=== PATIENT | male | born 2005 | race Two or more races ===

== ENCOUNTER 2023-08-25 05:12 | Emergency (ER) | payer OTHER, SELFPAY ==
--- NOTE | 2023-08-25 | ECG_ITS ---
Test Reason : CHEST PAIN Blood Pressure : / mmHG Vent. Rate : 054 BPM Atrial Rate : 054 BPM P-R Int : 134 ms QRS Dur : 094 ms QT Int : 390 ms P-R-T Axes : 052 077 038 degrees QTc Int : 369 ms Sinus bradycardia Otherwise normal ECG No previous ECGs available Referred By: Generic ED Physician Electronically Signed By:MAGUE VOGEL
--- NOTE | ~2023-08-25 | XR_ITS ---
EXAMINATION: XR CHEST CLINICAL INFORMATION: Chest pain. COMPARISON: None available. TECHNIQUE: Frontal view of the chest was obtained. FINDINGS: The lungs are well expanded. No focal consolidation. No pleural effusion. Cardiac silhouette is within normal limits. XR/XR chest 1V IMPRESSION: No acute abnormality.
[2023-08-25 05:30] VITALS: BP 109/70; PULSE 52; RESP 18; TEMP 36.1; O2SAT 99; BMI 18.8
[2023-08-25 05:38] LABS: MANUAL DIFF FLAG NO
[2023-08-25 05:40] LABS: Basophils Absolute Auto 0.1 X10*3/uL (0.0-0.2); Eosinophils Absolute Auto 0.4 X10*3/uL (0.0-0.4); Eosinophils Percent Auto 5.4 % (0-4); Hematocrit 43.7 % (42.0-52.0); Hemoglobin 14.6 g/dl (14.0-18.0); Imm Gran Abs Auto 0.02 X10*3/uL (0.00-0.03); Imm Gran Pct Auto 0.3 % (0.0-0.4); Lymphocytes Absolute Auto 3.5 X10*3/uL (1.2-4.9); Lymphocytes Percent Auto 48.3 % (20-40); Mean Corpuscular HGB Conc 33.4 g/dl (31.0-36.0); Mean Corpuscular Hemoglobin 28.5 pg (27.0-33.0); Mean Corpuscular Volume 85.2 fL (80.0-98.0); Mean Platelet Volume 12.8 fL (9.4-12.4); Monocytes Absolute Auto 0.5 X10*3/uL (0.1-1.2); Monocytes Percent Auto 6.2 % (2-11); Neutrophils Absolute Auto 2.8 x10*3/uL (2.0-8.3); Neutrophils Percent Auto 38.8 % (45-73); Platelet Count 146 X10*3/uL (160-400); Red Blood Count 5.13 X10*6/uL (4.60-5.80); Red Cell Distribution Width 13.1 % (11.0-16.0); White Blood Count 7.2 X10*3/uL (4.8-10.8)
[2023-08-25 05:57] LABS: Alanine Aminotransferase 13 U/L (0-40); Albumin Level 4.3 g/dL (3.5-5.0); Alkaline Phosphatase 104 U/L (39-117); Anion Gap 15 (12-20); Aspartate Amino Transferase 23 U/L (5-37); Bilirubin Direct 0.1 mg/dL (0.0-0.5); Bilirubin Total 0.3 mg/dL (0.0-1.0); Blood Urea Nitrogen 12 mg/dL (9-16); Calcium 9.7 mg/dL (8.4-10.2); Carbon Dioxide 25 mmol/L (22-29); Chloride 106 mmol/L (96-108); Creatinine Clr Calc Pharmacy 101.9; Estimated Glomerular Filt Rate > 60; Glucose Random 108 mg/dL (60-115); Potassium 3.7 mmol/L (3.3-5.1); Sodium 142 mmol/L (135-145)
--- NOTE | 2023-08-25 07:00 | CA_ITS ---
Transthoracic Echocardiogram Patient (Last, First, Middle): Nohemi Campbell Alex Gender: Male Date of : 2005 Age: 18 Procedure Date: 08/25/2023 Procedure Type: Transthoracic Echocardiogram Location: ER Height: 170.18 cm Weight: 54.43 kg BSA: 1.63 m2 Heart Rate: 70 bpm BP: 107 / 61 mmHg [employer] Supervisor: SB Referring MD: Nazanin Del Real DO Symptoms: chest pain, elevated troponin Study Quality: Good ECG Rhythm: Sinus Conclusions: - The left ventricular systolic function is normal. The calculated ejection fraction is 62% by biplane method. - No obvious valvular pathology seen on this study. Findings Left Ventricle Normal left ventricular cavity size. There is normal left ventricular wall thickness. The left ventricular systolic function is normal. The calculated ejection fraction is 62% by biplane method. There is no evidence of regional wall motion abnormalities. Diastolic function is normal for age. LV peak GLS -20.3%. Right Ventricle Normal right ventricular cavity size and systolic function. Atria Both atria are normal in size. Aortic Valve There is a normal trileaflet aortic valve. There is no aortic valve stenosis. There is no aortic valve regurgitation. Mitral Valve The mitral valve appears normal. There is no mitral valve regurgitation. There is no mitral valve stenosis. Pulmonic Valve The pulmonic valve is likely normal. Tricuspid Valve There is trace tricuspid valve regurgitation. There is no evidence of pulmonary hypertension. Great Vessels The asc aorta is normal in size. Venous The inferior vena cava is normal in size and collapses greater than 50% with inspiration. Pericardium/Pleural There is no evidence of pericardial effusion. Prior Study Comparison No prior study available for comparison. Recommendations, Care & Conclusions No obvious valvular pathology seen on this study. Measurements 2D Linear Measurements IVSd: 0.71 0.6-0.9/0.6-1.0 cm LVIDd: 4.88 3.9-5.3/4.2-5.9 cm LVIDd Index: 2.99 2.4-3.2/2.2-3.1 cm/m2 LVIDs: 3.45 2.0-3.6 cm LVPWd: 0.65 0.7-1.1 cm LA Diam: 3.30 2.7-3.8/3.0-4.0 cm LAIDs Index: 2.02 1.5-2.3 cm/m2 LV Mass: 130.98 67-162/88-224 g LV Mass Index: 80.35 43-95/49-115 g/m2 LVOT Diam: 2.00 3.0+(-)1.3 cm 2D Systolic Function EF 4C: 61.50 >55% EF 2C: 62.80 >55% EF BiP: 61.80 >55% Mitral Valve MV Pk E: 0.96 MV PK A: 0.29 MV Decel Time: 199.00 E/A: 3.40 E'Lateral: 23.20 E'Medial: 12.50 E/E' Med: 7.70 E/E' Lat: 4.20 PHT: 58.00 MVA PHT: 3.79 Decel Sutton: 4.85 Aortic Valve AoV Pk Arsen: 1.15 AoV Pk Grad: 5.00 CHERYL: 2.74 LVOT LVOT Pk Arsen: 0.96 LVOT Mn Arsen: 0.66 LVOT VTI: 0.21 LVOT Pk Grad: 4.00 LVOT Mn Grad: 2.00 LVOT Diam: 2.00 LVOT Area: 3.14 Diastolic Function MV Pk E: 0.96 MV Pk A: 0.29 E/A: 3.40 E'Medial: 12.50 E/E' Med: 7.70 E' Laterial: 23.20 E/E' Lat: 4.20 Right Ventricle TAPSE (mm): 21.30 TVS' Arsen: 13.20 Tricuspid Valve TR Pk Arsen: 1.84 TR Pk Grad: 14.00 RA Press: 3.00 RVSP: 17.00 Great Vessels Aorta Sinus of Valsalva: 2.80 2.0-3.5 cm Ao Asc: 2.40 2.1-3.4 cm Pulmonary Veins Pulm Vein S/D 1.00 Pulmonary Valve PV Pk Arsen: 1.06 Peak PV Grad: 4.00 Updated in Other Vendor System with Status of Final Colton Crowder MD electronically signed on 08/25/2023 10:18:00 AM with status of Final
[2023-08-25 07:51] VITALS: BP 107/61; PULSE 58; RESP 14; TEMP 36.6; O2SAT 100
[2023-08-25 08:02] VITALS: PULSE 56
--- NOTE | 2023-08-25 08:32 | ED.CHESTPAIN ---
HPI - Chest Pain General Chief Complaint: Chest Pain Stated Complaint: chest pain Time Seen by Provider: 08/25/23 07:59 Source: patient Mode of arrival: ambulatory Limitations: no limitations History of Present Illness HPI narrative: 18 yo male with PMH of IBS here with intermittent chest pain on and off x 1 month worse at 430am at this time he notes no risk factors for VTE, dissection. He denies drug use or pre-workout. No recent URIs. He states today it made him feel worse so he came to get it checked out. No prior cardiac work up. MD complaint: chest pain Onset (ago): month(s) (1 but again at 430am today) Timing of current episode: episodic Prior episodes: Yes Onset: during rest Pain location: substernal Pain radiation: none Severity: moderate Quality: tightness Relieving factors: nothing Exacerbating factors: nothing Associated symptoms: nausea, dyspnea and palpitations Treatment prior to arrival: none Related Data Previous Rx's ?Medication ?Instructions ?Recorded ibuprofen 600 mg tablet 600 mg PO Q6H pain 7 days #30 tabs 08/25/23 Allergies Allergy/AdvReac Type Severity Reaction Status Date / Time No Known Allergies Allergy Verified 08/25/23 05:32 Review of Systems Review of Systems: Constitutional : No Weight loss, No Fever, No Chills ENT/Mouth : No sore throat, No Rhinorrhea Eyes: No Eye Pain, No Swelling Cardiovascular : pos Chest Pain, pos SOB, no Dyspnea on Exertion, No Orthopnea, No Edema, No Palpitations Respiratory : No Cough, No Sputum Gastrointestinal : no Nausea, No Vomiting, No Diarrhea, No abdominal Pain, No Hematochezia, No Melena Genitourinary : No Dysuria, No Urinary Frequency Musculoskeletal : No joint pain, No Myalgias, No Joint Swelling Skin : No Skin Lesions, No rash Neuro : No Weakness, No Numbness, No Dizziness, No Headache Psych : No Anxiety/Panic, No Depression All other systems reviewed and are negative [facility] Past Medical History Attestation statement: The following information was validated with the patient. Source: old records reviewed Medical History IBS (irritable bowel syndrome) Social History Social History (Updated 08/25/23 @ 08:35 by Nazanin Del Real DO) Patient Tobacco Use Status: Never used Tobacco Smoked in Last 30 Days: No Use of substances other than those prescribed or required for medical reasons: No Advance Directives: No Advance Directives Information Provided: No Do you have a plan to hurt others: No Plan Physical Exam Vital Signs: Vital Signs: Last Vital Signs Temp 97.8 F 08/25/23 09:59 Pulse 60 08/25/23 09:59 Resp 17 08/25/23 09:59 BP 106/68 08/25/23 09:59 Pulse Ox 97 08/25/23 09:59 O2 Del Method Room Air 08/25/23 09:59 BMI result Body Mass Index 18.8 Appearance: Alert. Oriented X3. No acute distress. Eyes: Pupils equal, round and reactive to light. ENT: Pharynx normal. Neck: Normal inspection. Neck supple. CVS: Normal heart rate and rhythm. Pulses normal. Respiratory: No respiratory distress. Breath sounds normal. Abdomen: Soft and nontender. Skin: Skin warm and dry. Normal skin color. Normal skin turgor. Extremities: No lower extremity edema. No calf ttp Neuro: Oriented X 3. No motor deficit. No sensory deficit. Medical Decision Making Medical Decision Making [facility] Narrative: 18 yo male with IBS here with atypical on and off chest pain for a month no preceding URI symptoms - no travel he has distal pulses intact - he is PERC negative, doubt dissection given distal pulses intact. At this time he denies fam hx of CAD or sudden cardiac , he takes no medications and denies drug use/steroid use/pre-workout. At this time labs, troponin, EKG, CXR Differential Diagnosis Differential Diagnoses: The differential diagnosis associated with the presentation includes pericarditis, myocarditis, atypical chest pain PERC Negative distal pulses intact doubt dissection Admission/Observation Consideration of admission/observation: Escalation of care including admission/observation considered reviewed with cardiology can follow up in 2 weeks ECHO normal start on NSAIDs Consult Healthcare Provider Management of the patient was discussed with: Cylinder Dyer Dr. Vel cameron 905am - ordered ECHO Lab Data [facility] Lab Attestation statement: I reviewed the patient's lab results. 08/25/23 05:31 08/25/23 05:31 Labs: Lab Results 08/25/23 08/25/23 08/25/23 Range/Units 05:31 08:29 09:24 WBC 7.2 (4.8-10.8) X10*3/uL RBC 5.13 (4.60-5.80) X10*6/uL Hgb 14.6 (14.0-18.0) g/dl Hct 43.7 (42.0-52.0) % MCV 85.2 (80.0-98.0) fL MCH 28.5 (27.0-33.0) pg MCHC 33.4 (31.0-36.0) g/dl RDW 13.1 (11.0-16.0) % Plt Count 146 L (160-400) X10*3/uL MPV 12.8 H (9.4-12.4) fL Immature Gran % (Auto) 0.3 (0.0-0.4) % Neut % (Auto) 38.8 L (45-73) % Lymph % (Auto) 48.3 H (20-40) % [place] % (Auto) 6.2 (2-11) % Eos % (Auto) 5.4 H (0-4) % Baso % (Auto) 1.0 (0-2) % Lymph # (Auto) 3.5 (1.2-4.9) X10*3/uL [place] # (Auto) 0.5 (0.1-1.2) X10*3/uL Eos # (Auto) 0.4 (0.0-0.4) X10*3/uL Baso # (Auto) 0.1 (0.0-0.2) X10*3/uL Abs Immat Gran (auto) 0.02 (0.00-0.03) X10*3/uL Absolute Neuts (auto) 2.8 (2.0-8.3) x10*3/uL Absolute Nucleated RBC 0.000 (0.0-0.012) X10*3/uL Nucleated RBC % (auto) 0.0 (0.0-0.2) /100WBC ESR 1 (0-15) MM/HR PT 12.9 (11.1-13.3) SEC INR 1.1 (0.9-1.1) Sodium 142 (135-145) mmol/L Potassium 3.7 (3.3-5.1) mmol/L Chloride 106 (96-108) mmol/L Carbon Dioxide 25 (22-29) mmol/L Anion Gap 15 (12-20) BUN 12 (9-16) mg/dL Creatinine 0.89 (0.5-1.4) mg/dL Estim Creat Clear Calc 101.9 Estimated GFR > 60 Random Glucose 108 (60-115) mg/dL Calcium 9.7 (8.4-10.2) mg/dL Total Bilirubin 0.3 (0.0-1.0) mg/dL Direct Bilirubin 0.1 (0.0-0.5) mg/dL AST 23 (5-37) U/L ALT 13 (0-40) U/L Alkaline Phosphatase 104 (39-117) U/L Troponin I High Sens 61.0 H 58.9 H (<3.5-35.0) ng/L C-Reactive Protein < 0.10 (< or = 0.50) mg/dL Total Protein 7.0 (6.5-8.0) g/dL Albumin 4.3 (3.5-5.0) g/dL Urine Opiates Screen (Not Detect) Ur Buprenorphine Scrn (Not Detect) ng/mL Ur Oxycodone Screen (Not Detect) ng/mL Urine Methadone Screen (Not Detect) ng/mL Urine Fentanyl Screen (Not Detect) Ur Barbiturates Screen (Not Detect) Ur Phencyclidine Scrn (Not Detect) Ur Amphetamines Screen (Not Detect) U Benzodiazepines Scrn (Not Detect) Urine Cocaine Screen (Not Detect) U Marijuana (THC) Screen (Not Detect) Influenza Type A (PCR) NEGATIVE (Negative) Influenza Type B (PCR) NEGATIVE (Negative) RSV RNA Qual (PCR) NEGATIVE (Negative) SARS-CoV-2 RNA (RT-PCR) NEGATIVE (Negative) 08/25/23 Range/Units 09:59 WBC (4.8-10.8) X10*3/uL RBC (4.60-5.80) X10*6/uL Hgb (14.0-18.0) g/dl Hct (42.0-52.0) % MCV (80.0-98.0) fL MCH (27.0-33.0) pg MCHC (31.0-36.0) g/dl RDW (11.0-16.0) % Plt Count (160-400) X10*3/uL MPV (9.4-12.4) fL Immature Gran % (Auto) (0.0-0.4) % Neut % (Auto) (45-73) % Lymph % (Auto) (20-40) % [place] % (Auto) (2-11) % Eos % (Auto) (0-4) % Baso % (Auto) (0-2) % Lymph # (Auto) (1.2-4.9) X10*3/uL [place] # (Auto) (0.1-1.2) X10*3/uL Eos # (Auto) (0.0-0.4) X10*3/uL Baso # (Auto) (0.0-0.2) X10*3/uL Abs Immat Gran (auto) (0.00-0.03) X10*3/uL Absolute Neuts (auto) (2.0-8.3) x10*3/uL Absolute Nucleated RBC (0.0-0.012) X10*3/uL Nucleated RBC % (auto) (0.0-0.2) /100WBC ESR (0-15) MM/HR PT (11.1-13.3) SEC INR (0.9-1.1) Sodium (135-145) mmol/L Potassium (3.3-5.1) mmol/L Chloride (96-108) mmol/L Carbon Dioxide (22-29) mmol/L Anion Gap (12-20) BUN (9-16) mg/dL Creatinine (0.5-1.4) mg/dL Estim Creat Clear Calc Estimated GFR Random Glucose (60-115) mg/dL Calcium (8.4-10.2) mg/dL Total Bilirubin (0.0-1.0) mg/dL Direct Bilirubin (0.0-0.5) mg/dL AST (5-37) U/L ALT (0-40) U/L Alkaline Phosphatase (39-117) U/L Troponin I High Sens (<3.5-35.0) ng/L C-Reactive Protein (< or = 0.50) mg/dL Total Protein (6.5-8.0) g/dL Albumin (3.5-5.0) g/dL Urine Opiates Screen Not Detected (Not Detect) Ur Buprenorphine Scrn Not Detected (Not Detect) ng/mL Ur Oxycodone Screen Not Detected (Not Detect) ng/mL Urine Methadone Screen Not Detected (Not Detect) ng/mL Urine Fentanyl Screen Not Detected (Not Detect) Ur Barbiturates Screen Not Detected (Not Detect) Ur Phencyclidine Scrn Not Detected (Not Detect) Ur Amphetamines Screen Not Detected (Not Detect) U Benzodiazepines Scrn Not Detected (Not Detect) Urine Cocaine Screen Not Detected (Not Detect) U Marijuana (THC) Screen POSITIVE H (Not Detect) Influenza Type A (PCR) (Negative) Influenza Type B (PCR) (Negative) RSV RNA Qual (PCR) (Negative) SARS-CoV-2 RNA (RT-PCR) (Negative) Independent Interpretation I performed an independent interpretation of an: EKG and Plain X-Ray (normal ) Interpretation: Rate: 54 Rhythm: sinus bradycardia [place]: normal Normal P waves. Normal JENNIFER. Normal QRS complex. ST T wave : no [place], biphasic t waves in V1 qTC: 369 prior studies: no prior The study has been interpreted contemporaneously by me. . Radiology Impression Discussion of test interpretation with radiology: I have reviewed the radiologist's reading. Prescription Management I considered prescription management with: Other Critical Care Time Critical Care Time Critical Care Time: Yes Total Critical Care Time: 45 Attestation: repeat troponin, ECHO, cardiology consult I attest to this time spent taking care of the patient Discharge Plan Discharge Clinical Impression: Precordial chest pain Pericarditis Qualifiers: Pericarditis type: unspecified type Chronicity: acute Qualified Code(s): I30.9 - Acute pericarditis, unspecified Patient Disposition: Home, Self-Care Instructions: Chest Pain (ED), Acute Pericarditis (ED) Additional Instructions: return for worsening pain, leg swelling, fainting, or any other concerns cardiology will be calling you to schedule outpatient appointment in 2 weeks please follow up take motrin as prescribed for one week we will call you if your tick studies are positive Prescriptions: New ibuprofen 600 mg tablet 600 mg PO Q6H 7 Days Qty: 30 0RF Stand Alone Forms: Work/School Release Print Language: Czech
[2023-08-25 08:40] LABS: INTERNATIONAL NORM RATIO 1.1 (0.9-1.1); Prothrombin Time 12.9 SEC (11.1-13.3)
[2023-08-25 08:51] LABS: C Reactive Protein < 0.10 mg/dL (< or = 0.50)
[2023-08-25 08:59] LABS: Troponin-I High Sensitivity 58.9 ng/L (<3.5-35.0)
[2023-08-25 09:28] LABS: Erythrocyte Sedimentation Rate 1 MM/HR (0-15)
[2023-08-25 09:59] VITALS: BP 106/68; PULSE 60; RESP 17; TEMP 36.6; O2SAT 97
[2023-08-25 10:16] LABS: Influenza A PCR NEGATIVE (Negative); Influenza B PCR NEGATIVE (Negative); Resp Syncy Virus RNA Qual PCR NEGATIVE (Negative); SARS COV2 PCR INHOUSE NEGATIVE (Negative)
[2023-08-25 10:20] LABS: Amphetamine Screen Urine Not Detected (Not Detect); Barbiturates, Urine Not Detected (Not Detect); Benzodiazepines Screen Urine Not Detected (Not Detect); Buprenorphine Scr Not Detected (Not Detect); Cannabinoid Screen Urine POSITIVE (Not Detect); Cocaine Screen Urine Not Detected (Not Detect); Fentanyl, urine Not Detected (Not Detect); Methadone Screen, Urine Not Detected (Not Detect); Opiate Screen Urine Not Detected (Not Detect); Oxycodone Screen Urine Not Detected (Not Detect); Phencyclidine Screen Urine Not Detected (Not Detect)
--- NOTE | 2023-08-25 10:32 | P.CONCA_ITS ---
History of Present Illness History of Present Illness Date of Service: 08/25/23 Chief complaint: chest pain Narrative: This is a cardiology consultation regarding chest pain. Patient is a 18-year-old young male without any past history. He states for the last month or so he has not been feeling good. Off and on symptoms of chest tightness/weird feeling. He has also been feeling some discomfort in the abdomen intermittently. Today, he woke up with this and then got very anxious and decided to get checked out. Overall, healthy at baseline with no limitations. Troponins were checked in the ER and that showed slight elevation and hence we are asked to see. Review of Systems 2 Review of Systems: Yes all other systems are reviewed and are negative Constitutional: Constitutional: Reports as per HPI and Reports no additional constitutional complaints Eyes: Eyes: Reports as per HPI and Denies no additional eye complaints ENT: Denies system reviewed and no additional complaints, except as documented and Reports as per HPI Cardiovascular: Cardiovascular: Reports as per HPI, Reports no additional cardiovascular complaints, Denies acrocyanosis, Denies cool extremities, Reports chest pain, Denies leg edema, Denies lightheadedness, Denies palpitations and Denies dyspnea Respiratory: Respiratory: Reports as per HPI, Denies no additional respiratory complaints and Denies dyspnea Gastrointestinal: Gastrointestinal: Reports as per HPI and Denies no additional gastrointestinal complaints Genitourinary: Genitourinary: Reports no additional male genitourinary complaints and Reports as per HPI Musculoskeletal: Musculoskeletal: Reports no additional musculoskeletal complaints and Reports as per HPI Integumentary/Breasts: Skin/Breast: Reports system reviewed and no additional complaints, except as docu Neurologic: Reports system reviewed and no additional complaints, except as documented and Reports as per HPI Psychiatric: Psychiatric: Reports no additional psychiatric complaints and Reports as per HPI Endocrine: Endocrine: Reports no additional endocrine complaints, Reports as per HPI and Denies palpitations Hematologic/Lymphatic: Hematologic/Lymphatic: Reports no additional hematologic/lymphatic complaints and Reports as per HPI Allergic/Immunologic: Allergic/Immunologic: Reports no additional allergic/immunologic complaints and Reports as per HPI [facility] Past Medical History Medical History IBS (irritable bowel syndrome) Family History Pertinent family history: No pertinent family history and discussed with mother. Social History Social History (Updated 05/02/24 @ 08:35 by PAIGE Correa Patient Tobacco Use Status: Never used Tobacco Smoked in Last 30 Days: No Use of substances other than those prescribed or required for medical reasons: No Advance Directives: No Advance Directives Information Provided: No Do you have a plan to hurt others: No Plan Meds Allergies Allergy/AdvReac Type Severity Reaction Status Date / Time No Known Allergies Allergy Verified 08/25/23 05:32 Physical Exam 2 Vital Signs: Vital Signs: Last Vital Signs Temp 97.8 F 08/25/23 09:59 Pulse 60 08/25/23 09:59 Resp 17 08/25/23 09:59 BP 106/68 08/25/23 09:59 Pulse Ox 97 08/25/23 09:59 O2 Del Method Room Air 08/25/23 09:59 BMI result Body Mass Index 18.8 Const: General: comfortable and no acute distress O rientation/consciousness: patient oriented x3 HEENT: Other: Unremarkable Head: Yes normal to inspection Neck: Neck: Yes normal visual inspection Chest: Chest palpation & inspection: normal inspection of the chest Resp: Auscultation: clear to auscultation bilaterally Cardio: Palpation: normal PMI Heart sounds: S1 normal heart sound present, S2 normal heart sound present, no gallops, no murmurs and no rubs GI: Palpation (GI): Soft to palpation Back/Spine/Pelvis: Other: unremarkable Skin: General skin exam: no rashes or lesions noted Neuro: General: patient oriented x3 Extrem: General: Yes normal to inspection Psych: Mental Status: mental status grossly normal Objective Labs and Meds 08/25/23 05:31 08/25/23 05:31 Lab results: Laboratory Results - last 24 hr 08/25/23 08/25/23 08/25/23 05:31 08:29 09:24 WBC 7.2 RBC 5.13 Hgb 14.6 Hct 43.7 MCV 85.2 MCH 28.5 MCHC 33.4 RDW 13.1 Plt Count 146 L MPV 12.8 H Immature Gran % (Auto) 0.3 Neut % (Auto) 38.8 L Lymph % (Auto) 48.3 H [place] % (Auto) 6.2 Eos % (Auto) 5.4 H Baso % (Auto) 1.0 Lymph # (Auto) 3.5 [place] # (Auto) 0.5 Eos # (Auto) 0.4 Baso # (Auto) 0.1 Abs Immat Gran (auto) 0.02 Absolute Neuts (auto) 2.8 Absolute Nucleated RBC 0.000 Nucleated RBC % (auto) 0.0 ESR 1 PT 12.9 INR 1.1 Sodium 142 Potassium 3.7 Chloride 106 Carbon Dioxide 25 Anion Gap 15 BUN 12 Creatinine 0.89 Estim Creat Clear Calc 101.9 Estimated GFR > 60 Random Glucose 108 Calcium 9.7 Total Bilirubin 0.3 Direct Bilirubin 0.1 AST 23 ALT 13 Alkaline Phosphatase 104 Troponin I High Sens 61.0 H 58.9 H C-Reactive Protein < 0.10 Total Protein 7.0 Albumin 4.3 Urine Opiates Screen Ur Buprenorphine Scrn Ur Oxycodone Screen Urine Methadone Screen Urine Fentanyl Screen Ur Barbiturates Screen Ur Phencyclidine Scrn Ur Amphetamines Screen U Benzodiazepines Scrn Urine Cocaine Screen U Marijuana (THC) Screen Influenza Type A (PCR) NEGATIVE Influenza Type B (PCR) NEGATIVE RSV RNA Qual (PCR) NEGATIVE SARS-CoV-2 RNA (RT-PCR) NEGATIVE 08/25/23 09:59 WBC RBC Hgb Hct MCV MCH MCHC RDW Plt Count MPV Immature Gran % (Auto) Neut % (Auto) Lymph % (Auto) [place] % (Auto) Eos % (Auto) Baso % (Auto) Lymph # (Auto) [place] # (Auto) Eos # (Auto) Baso # (Auto) Abs Immat Gran (auto) Absolute Neuts (auto) Absolute Nucleated RBC Nucleated RBC % (auto) ESR PT INR Sodium Potassium Chloride Carbon Dioxide Anion Gap BUN Creatinine Estim Creat Clear Calc Estimated GFR Random Glucose Calcium Total Bilirubin Direct Bilirubin AST ALT Alkaline Phosphatase Troponin I High Sens C-Reactive Protein Total Protein Albumin Urine Opiates Screen Not Detected Ur Buprenorphine Scrn Not Detected Ur Oxycodone Screen Not Detected Urine Methadone Screen Not Detected Urine Fentanyl Screen Not Detected Ur Barbiturates Screen Not Detected Ur Phencyclidine Scrn Not Detected Ur Amphetamines Screen Not Detected U Benzodiazepines Scrn Not Detected Urine Cocaine Screen Not Detected U Marijuana (THC) Screen POSITIVE H Influenza Type A (PCR) Influenza Type B (PCR) RSV RNA Qual (PCR) SARS-CoV-2 RNA (RT-PCR) ECG Interpretation: EKG with sinus bradycardia at 54/Min; no significant ST-T changes and otherwise unremarkable. Normal ID and corrected QT. no evidence of pre-excitation or other abnormalities. Imaging Radiologist's impression: Impressions Chest X-Ray 08/25/23 08:52 IMPRESSION: No acute abnormality. Assessment and Plan (1) Precordial chest pain: Status: Acute (2) Elevated troponin: Status: Acute Plan Troponin levels are slightly abnormal. Two sets have been checked and they include 61 followed by 59. Otherwise, CRP/ESR within normal limits. With regard to the other labs, platelets slightly low at 146. In the differential counts, neutrophils slightly decreased and lymphocytes elevated. Eosinophiles slightly abnormal. Unclear he is having some infection and possible mild myopericarditis. Echocardiogram does not show any wall motion abnormalities or other significant findings. Mainly reassurance at this time. NSAIDs for symptomatic relief. Workup for infectious etiology. Discussed with Dr. Del Real. Discussed with mother. Procedures Date of Service Date of Service: 08/25/23
[2023-08-25 11:26] VITALS: BP 110/71; PULSE 58; RESP 16; TEMP 36.7; O2SAT 99
[2023-08-26 17:04] LABS: A. Phagocytphilium DNA,RT-PCR NOT DETECTED (NOT DETECTED); Babesia Microti DNA, RT-PCR NOT DETECTED (NOT DETECTED); Borrelia Miyamotoi,DNA RT-PCR NOT DETECTED (NOT DETECTED); E.Chaffeensis DNA RT-PCR NOT DETECTED (NOT DETECTED); Lyme(Borrelia ssp)DNA RT-PCR NOT DETECTED (NOT DETECTED)
[2023-08-26 22:48] LABS: Lyme Abs Screen <0.90 index
== END 2023-08-25 11:30 | disposition home or self-care (01) ==
PROVIDERS: Emergency Provider Emergency Medicine
DX: I30.9 Acute pericarditis, unspecified (principal); R07.89 Other chest pain; R79.89 Other specified abnormal findings of blood chemistry; R11.0 Nausea; R00.2 Palpitations; Z20.822 Contact with and (suspected) exposure to COVID-19; Z11.52 Encounter for screening for COVID-19; Z79.899 Other long term (current) drug therapy
CPT/HCPCS: 0241U; 36415; 71045; 80048; 80076; 80307; 84484; 85025; 85610; 85652; 86140; 86617; 86618; 87468; 87469; 87478; 87484; 87798; 93005; 93306; 93356; 99285

== ENCOUNTER → 2023-08-25 05:39 | Outpatient (BNV) | payer OTHER, SELFPAY | PROVIDERS: Emergency Provider Emergency Medicine; Visit Provider Internal Medicine | DX: R07.2 Precordial pain (principal); R79.89 Other specified abnormal findings of blood chemistry; R00.1 Bradycardia, unspecified | CPT/HCPCS: 93010; 93306; 93356; 99283 ==

== ENCOUNTER 2023-09-07 15:20 | Outpatient (AMB) | payer OTHER, SELFPAY ==
[2023-09-07 15:25] VITALS: BP 110/60; PULSE 57; O2SAT 99; BMI 19.3
--- NOTE | 2023-09-07 15:25 | MHC.OFFVIS ---
Vital Signs 09/07/23 15:25 Height 5 ft 7 in Weight 123 lb 7.342 oz BMI 19.3 BP 110/60 Blood Pressure Location Lt brachial Position Sitting Pulse 57 Pulse Source Pulse Oximeter Pulse Oximetry (%) 99 Oxygen Delivery Method Room Air Intake Visit Reasons: [facility] f/u per HS Allergies Seasonal Allergies Allergy (Mild, Verified 09/07/23 15:33) Sneezing HPI Comments Details: 18-year-old male presents today for a follow-up. He was seen in the emergency room on 08/25/23. He has been having some chest pains the last few days on the left sternal border by the 4th-5th ICS. He has not been active and has not been using NSAIDs. He has also quit smoking since then. [facility] Medical History IBS (irritable bowel syndrome) Family History (Updated 09/07/23 @ 15:33 by Irina Becerril) Father Heart problem Social History (Updated 08/25/23 @ 08:35 by Nazanin Del Real DO) Patient Tobacco Use Status: Never used Tobacco Review of Systems Const Denies weakness ENT Denies dizziness Card Denies chest pain, Denies chest pain with activity, Denies syncope, Denies rapid heart rate, Denies pedal edema, Denies edema, Denies leg edema, Denies lightheadedness, Denies palpitations, Denies dyspnea, Denies dyspnea on exertion and Denies orthopnea Resp Denies cough, Denies dyspnea and Denies dyspnea on exertion GI Denies hematochezia and Denies change in stool character Musc Denies abnormal gait, Denies muscle cramps, Denies muscle weakness, Denies numbness, Denies radiating pain into limb and Denies tingling Neuro Denies abnormal gait, Denies dizziness, Denies syncope, Denies numbness, Denies tingling and Denies weakness Endo Denies palpitations Physical Exam Vital Signs: Last Vital Signs Pulse 57 09/07/23 15:25 BP 110/60 09/07/23 15:25 Pulse Ox 99 09/07/23 15:25 Oxygen Delivery Method Room Air 09/07/23 15:25 BMI result Body Mass Index 19.3 Const General: healthy appearing and no acute distress Orientation/consciousness: patient oriented x3 HEENT Head: Yes normal to inspection Eyes General: appearance normal, both eyes and all related structures Neck Neck: Yes normal visual inspection Chest Chest palpation & inspection: normal inspection of the chest Resp Effort & Inspection: normal respiratory effort Auscultation: clear to auscultation bilaterally Cardio Jugular venous distension: no JVD Palpation: normal PMI Rate: regular rate Rhythm: regular rhythm Heart sounds: S1 normal heart sound present, S2 normal heart sound present, no click, no gallops, no murmurs and no rubs GI Inspection: Yes normal to inspection Palpation (GI): Soft to palpation Skin General skin exam: no rashes or lesions noted Neuro General: patient oriented x3 Extrem General: Yes normal to inspection Psych Appearance: grossly normal Assessment & Plan Assessment & Plan (1) Pericarditis: Code(s): I31.9 - Disease of pericardium, unspecified Category: Medical Qualifiers: Chronicity: acute Pericarditis type: unspecified type Qualified Code(s): I30.9 - Acute pericarditis, unspecified Plan He had a slight elevation in his troponins (61 and 59). CRP/ESR were normal. Echocardiogram showed no wall motion abnormality. Possible pericarditis. Will repeat echo in 3 months. NSAIDs as needed for relief. [place] to avoid strenous activity. Follow-up after echocardiogram. Medications: Discontinued ibuprofen Discontinued Reason: Patient no longer taking 600 mg PO Q6H 7 days 30 tabs 0RF pain Coding Level of Care Code Est Pt Level 3 (93648) Diagnoses Pericarditis I30.9 Chronicity: acute Pericarditis type: unspecified type
== END 2023-09-07 15:41 | disposition home or self-care (01) ==
PROVIDERS: Visit Provider Nurse Practitioner
DX: I30.9 Acute pericarditis, unspecified (principal)
CPT/HCPCS: 99213

== ENCOUNTER → 2023-09-07 15:20 | Outpatient (BNVA) | payer OTHER, SELFPAY | PROVIDERS: Visit Provider Nurse Practitioner | DX: I30.9 Acute pericarditis, unspecified (principal) | CPT/HCPCS: 99212 ==

== ENCOUNTER 2023-09-08 12:45 | Outpatient (REF) | payer OTHER, SELFPAY ==
[2023-09-08 13:15] LABS: MANUAL DIFF FLAG NO
[2023-09-08 14:09] LABS: Basophils Absolute Auto 0.1 X10*3/uL (0.0-0.2); Basophils Percent Auto 0.9 % (0-2); Eosinophils Absolute Auto 0.4 X10*3/uL (0.0-0.4); Eosinophils Percent Auto 4.8 % (0-4); Hematocrit 45.6 % (42.0-52.0); Hemoglobin 15.1 g/dl (14.0-18.0); Imm Gran Abs Auto 0.03 X10*3/uL (0.00-0.03); Imm Gran Pct Auto 0.4 % (0.0-0.4); Lymphocytes Absolute Auto 2.3 X10*3/uL (1.2-4.9); Lymphocytes Percent Auto 27.8 % (20-40); Mean Corpuscular HGB Conc 33.1 g/dl (31.0-36.0); Mean Corpuscular Volume 84.4 fL (80.0-98.0); Mean Platelet Volume 12.4 fL (9.4-12.4); Monocytes Absolute Auto 0.8 X10*3/uL (0.1-1.2); Monocytes Percent Auto 9.8 % (2-11); Neutrophils Absolute Auto 4.6 x10*3/uL (2.0-8.3); Neutrophils Percent Auto 56.3 % (45-73); Platelet Count 163 X10*3/uL (160-400); White Blood Count 8.2 X10*3/uL (4.8-10.8)
[2023-09-08 14:43] LABS: C Reactive Protein 0.42 mg/dL (< or = 0.50)
[2023-09-08 15:11] LABS: Erythrocyte Sedimentation Rate 3 MM/HR (0-15)
== END 2023-09-08 12:46 | disposition home or self-care (01) ==
LOC: HO.LAB 12:45
PROVIDERS: PCP Pediatrics; Visit Provider Pediatrics Pediatric Gastroenterology
DX: K62.5 Hemorrhage of anus and rectum (principal)
CPT/HCPCS: 36415; 85025; 85652; 86140

== ENCOUNTER 2023-09-15 12:53 | Emergency (ER) | payer OTHER, SELFPAY ==
--- NOTE | ~2023-09-15 | CT_ITS ---
EXAMINATION: CT ABDOMEN AND PELVIS WITHOUT CONTRAST CLINICAL INFORMATION: lower abd pain, hx of IBD COMPARISON: None available. TECHNIQUE: Multidetector volumetric imaging was performed from the superior aspect of the liver through the pubic symphysis. Sagittal and coronal reformatted images were obtained on the technologist's workstation. This CT examination was performed using dose optimization techniques as appropriate, variously including the following: *Automated exposure control *Adjustment of mA and/or kV according to patient size (this includes techniques or standardized protocols for targeted exams where dose is matched to indication/reason for exam; i.e. extremities or head) *Use of iterative reconstruction technique DLP: 269 mGy-cm FINDINGS: LUNG BASES: The visualized lung bases are unremarkable. LIVER, GALLBLADDER, AND BILIARY TREE: The liver is normal in size, shape, and attenuation. No focal hepatic lesion or biliary ductal dilatation is present. The gallbladder is unremarkable with no evidence of radiopaque gallstones, gallbladder wall thickening, or obvious pericholecystic inflammatory changes. PANCREAS: Unremarkable. SPLEEN: Unremarkable. ADRENAL GLANDS: Unremarkable. KIDNEYS AND URETERS: The kidneys are normal in size, shape, and attenuation. No hydronephrosis, hydroureter, or calculi seen. No perinephric stranding. BLADDER: Unremarkable. GASTROINTESTINAL TRACT: Trace free fluid in the right pouch of Curtis. Stranding is noted in the right anterior pelvis. The colon is diffusely thick-walled with mild adjacent stranding involving the entirety of the colon. There are also right lower quadrant lymph nodes identified, for example a node measuring up to 0.8 cm in short axis (series #4 axial image 460). The appendix is not definitively identified related to patient body habitus. No evidence for obstruction. No pneumoperitoneum. ABDOMINAL WALL: No significant hernia is appreciated. LYMPH NODES: Normal. VASCULAR: Unremarkable. PELVIC VISCERA: CT appearance of the prostate and seminal vesicles. OSSEOUS STRUCTURES: No acute or suspicious osseous abnormality. Grade 1 retrolisthesis of L5 on S1. CT/CT abdomen pelvis wo IV con IMPRESSION: 1. Elevation is limited on this noncontrast study. The colon appears diffusely thick-walled with mild adjacent stranding which can be seen with colitis of infectious/inflammatory etiology. 2. There are also right lower quadrant prominent lymph nodes, stranding and trace free fluid. The appendix is not definitively identified. Given these findings, acute appendicitis cannot be excluded. If clinically warranted, consider Limited abdominal ultrasound to assess the appendix. Fleischner guidelines were followed.
[2023-09-15 13:21] VITALS: BP 115/71; PULSE 89; RESP 18; TEMP 36.6; O2SAT 97; BMI 19.2
--- NOTE | 2023-09-15 13:22 | ED_ITS ---
HPI - General Adult General Chief complaint: Nausea/Vomiting/Diarrhea Stated complaint: vomiting, cant keep food down Time Seen by Provider: 09/15/23 16:52 Source: patient Mode of arrival: ambulatory Limitations: no limitations History of Present Illness ED Provider: Dr. Esperanza Cole HPI narrative: Patient comes to the emergency room complaining of bilateral lower quadrant pain for 2 weeks. Patient states that he has an appointment pending with [facility]. His appointment was today, but given that he was having bilateral abdominal pain and patient had noted blood in the stool, he was instructed to come to the emergency room. Patient states that he has been worked up for IBD. Patient denies any nausea vomiting or diarrhea. Patient denies fever chills Related Data Previous Rx's ?Medication ?Instructions ?Recorded levofloxacin 500 mg tablet 500 mg PO DAILY #9 tabs 09/15/23 metronidazole 500 mg tablet 500 mg PO BID #19 tabs 09/15/23 Allergies Allergy/AdvReac Type Severity Reaction Status Date / Time Seasonal Allergies Allergy Mild Sneezing Verified 09/15/23 13:23 Review of Systems 2 Review of Systems: Constitutional : No Weight loss, No Fever, No Chills, No Night Sweats, No Fatigue, No Malaise ENT/Mouth : No Hearing loss, No Ear Pain, No Nasal Congestion, No Sinus Pain, No Hoarseness, No sore throat, No Rhinorrhea, No Swallowing Difficulty Eyes: No Eye Pain, No Swelling, No Redness, No Foreign Body, No Discharge, No Vision Changes Cardiovascular : No Chest Pain, No SOB, No Dyspnea on Exertion, No Orthopnea, No Edema, No Palpitations Respiratory : No Cough, No Sputum, No Wheezing, No Smoke Exposure, No Dyspnea Gastrointestinal : No Nausea, No Vomiting, No Diarrhea, complaining of bilateral discomfort for 2 weeks, constant, nonradiating, complaining of seeing blood in the stool with bowel movements. Genitourinary : no irregular bleeding, No Dysuria, No Urinary Frequency, No Hematuria, No Urinary Incontinence, No Urgency, No Flank Pain, No Urinary Flow Changes, No Hesitancy Musculoskeletal : No joint pain, No Myalgias, No Joint Swelling Skin : No Skin Lesions, No rash Neuro : No Weakness, No Numbness, No Paresthesias, No Loss of Consciousness, No Dizziness, No Headache Psych : No Anxiety/Panic, No Depression, No SI/HI/AH/VH, No Social Issues, Heme/Lymph: No Bruising, No Bleeding,No Lymphadenopathy Endocrine : No Polyuria, No Polydipsia, No Temperature Intolerance [facility] Past Medical History Medical History IBS (irritable bowel syndrome) Family History Family History (Updated 09/07/23 @ 15:33 by Irina Becerril) Father Heart problem Social History Social History (Updated 08/25/23 @ 08:35 by Nazanin Del Real DO) Patient Tobacco Use Status: Never used Tobacco Advance Directives: No Do you have a plan to hurt others: No Plan Physical Exam ED Vital Signs: Vital Signs - 24 hr 09/15/23 13:21 09/15/23 18:29 09/15/23 19:18 Temperature 97.9 F 98.5 F 98.8 F Pulse Rate 89 72 88 Respiratory Rate 18 16 18 Blood Pressure 115/71 129/74 117/75 Pulse Oximetry 97 98 99 Oxygen Delivery Method Room Air Room Air Room Air BMI result Body Mass Index 19.2 Const Other: Appearance: Alert. Oriented X3. No acute distress. Eyes: Pupils equal, round and reactive to light. ENT: Pharynx normal. Neck: Normal inspection. Neck supple. No lymph nodes noted. No crepitus CVS: Normal heart rate and rhythm. Pulses normal. Normal S1 and S2 Respiratory: No respiratory distress. Breath sounds normal. No Wheezing. No rales, digital rectal exam brown stool, guaiac positive Abdomen: Soft and nontender. No rigidity. No distention. Skin: Skin warm and dry. Normal skin color. Normal skin turgor. Extremities: No lower extremity edema. No Lacerations. No Rash Neuro: Oriented X 3. No motor deficit. No sensory deficit. Moving all extremities. No slurred speech. CN 2 through 12 grossly intact Psych: calm, cooperative, normal affect Course Course Course Narrative: This is a Rapid Medical Examination (RME) performed by Tracy Garcia PA-C in triage. Full HPI, ROS, assessment and treatment plan per primary provider in the Main ED. 18 yo male hx IBD here w/ intermittent N/V x weeks. assoc lower abdominal pain. he was supposed to see PCP today however his GI specialist told him to come to the ED instead. hx of IBD- GI worried this may be an infection. denies fever, chills. no recent travel or sick contacts. abd soft, ND/NT, no rebound or guarding. no cvat b/l. Plan: labs, UA ordered Medical Decision Making Medical Decision Making [facility] Narrative: My interpretation of labs: White blood cell count 11.1, slightly elevated. Likely reactive leukocytosis. Chemistry unremarkable. Lipase normal. Guaiac test heme-positive -CT scan done earlier today from triage:: Appears diffusely thickened, possible colitis bruising inflammation. The appendix can not be seen. However, on physical exam, patient has no left lower quadrant pain and no rebound no guarding, no pain at McBurney's point. -patient likely having colitis, versus IBS. Patient instructed to take antibiotics for 10 days. First dose given in the ED, levofloxacin and metronidazole. However, given his young age with the symptoms, patient is to have close follow-up with his primary care physician and Gastroenterology. Differential Diagnosis Differential Diagnoses: The differential diagnosis associated with the presentation includes (Gastritis, gastroenteritis, ulcerative colitis) Admission/Observation Consideration of admission/observation: Escalation of care including admission/observation considered (Given patient's symptoms, observation/admission considered) Lab Data [facility] Lab Attestation statement: I reviewed the patient's lab results. 09/15/23 13:40 09/15/23 13:40 Labs: Lab Results 09/15/23 09/15/23 Range/Units 13:40 18:55 WBC 11.1 H (4.8-10.8) X10*3/uL RBC 5.69 (4.60-5.80) X10*6/uL Hgb 15.9 (14.0-18.0) g/dl Hct 47.4 (42.0-52.0) % MCV 83.3 (80.0-98.0) fL MCH 27.9 (27.0-33.0) pg MCHC 33.5 (31.0-36.0) g/dl RDW 12.6 (11.0-16.0) % Plt Count 206 D (160-400) X10*3/uL MPV 12.3 (9.4-12.4) fL Immature Gran % (Auto) 0.4 (0.0-0.4) % Neut % (Auto) 72.1 (45-73) % Lymph % (Auto) 16.9 L (20-40) % [place] % (Auto) 7.0 (2-11) % Eos % (Auto) 3.1 (0-4) % Baso % (Auto) 0.5 (0-2) % Lymph # (Auto) 1.9 (1.2-4.9) X10*3/uL [place] # (Auto) 0.8 (0.1-1.2) X10*3/uL Eos # (Auto) 0.3 (0.0-0.4) X10*3/uL Baso # (Auto) 0.1 (0.0-0.2) X10*3/uL Abs Immat Gran (auto) 0.04 H (0.00-0.03) X10*3/uL Absolute Neuts (auto) 8.0 (2.0-8.3) x10*3/uL Absolute Nucleated RBC 0.000 (0.0-0.012) X10*3/uL Nucleated RBC % (auto) 0.0 (0.0-0.2) /100WBC Sodium 140 (135-145) mmol/L Potassium 4.3 (3.3-5.1) mmol/L Chloride 102 (96-108) mmol/L Carbon Dioxide 29 (22-29) mmol/L Anion Gap 13 (12-20) BUN 11 (9-16) mg/dL Creatinine 0.94 (0.5-1.4) mg/dL Estim Creat Clear Calc 98.5 Estimated GFR > 60 Random Glucose 101 (60-115) mg/dL Calcium 9.9 (8.4-10.2) mg/dL Magnesium 1.9 (1.6-2.6) mg/dL Total Bilirubin 0.3 (0.0-1.0) mg/dL AST 19 (5-37) U/L ALT 12 (0-40) U/L Alkaline Phosphatase 93 (39-117) U/L Total Protein 7.7 (6.5-8.0) g/dL Albumin 4.5 (3.5-5.0) g/dL Lipase 14 (8-78) U/L Stool Occult Blood POSITIVE (NEGATIVE) Influenza Type A (PCR) NEGATIVE (Negative) Influenza Type B (PCR) NEGATIVE (Negative) RSV RNA Qual (PCR) NEGATIVE (Negative) SARS-CoV-2 RNA (RT-PCR) NEGATIVE (Negative) Independent Interpretation I performed an independent interpretation of an: CT Scan Radiology Impression Discussion of test interpretation with radiology: I have reviewed the radiologist's reading. Radiologist Impression: FINDINGS: LUNG BASES: The visualized lung bases are unremarkable. LIVER, GALLBLADDER, AND BILIARY TREE: The liver is normal in size, shape, and attenuation. No focal hepatic lesion or biliary ductal dilatation is present. The gallbladder is unremarkable with no evidence of radiopaque gallstones, gallbladder wall thickening, or obvious pericholecystic inflammatory changes. PANCREAS: Unremarkable. SPLEEN: Unremarkable. ADRENAL GLANDS: Unremarkable. KIDNEYS AND URETERS: The kidneys are normal in size, shape, and attenuation. No hydronephrosis, hydroureter, or calculi seen. No perinephric stranding. BLADDER: Unremarkable. GASTROINTESTINAL TRACT: Trace free fluid in the right pouch of Curtis. Stranding is noted in the right anterior pelvis. The colon is diffusely thick-walled with mild adjacent stranding involving the entirety of the colon. There are also right lower quadrant lymph nodes identified, for example a node measuring up to 0.8 cm in short axis (series #4 axial image 460). The appendix is not definitively identified related to patient body habitus. No evidence for obstruction. No pneumoperitoneum. ABDOMINAL WALL: No significant hernia is appreciated. LYMPH NODES: Normal. VASCULAR: Unremarkable. PELVIC VISCERA: CT appearance of the prostate and seminal vesicles. OSSEOUS STRUCTURES: No acute or suspicious osseous abnormality. Grade 1 retrolisthesis of L5 on S1. CT/CT abdomen pelvis wo IV con IMPRESSION: 1. Elevation is limited on this noncontrast study. The colon appears diffusely thick-walled with mild adjacent stranding which can be seen with colitis of infectious/inflammatory etiology. 2. There are also right lower quadrant prominent lymph nodes, stranding and trace free fluid. The appendix is not definitively identified. Given these findings, acute appendicitis cannot be excluded. If clinically warranted, consider Limited abdominal ultrasound to assess the appendix. Fleischner guidelines were followed. Critical Care Time Critical Care Time Critical Care Time: Yes Total Critical Care Time: 45 Attestation: I have personally provided critical care time. Time includes review of lab data, radiology results, discussion with consultants, and monitoring for potential decompensation. Intervention performed as documented. Discharge Plan Discharge Clinical Impression: Colitis Patient Disposition: Home, Self-Care Instructions: Colitis (ED) Additional Instructions: Please follow-up with your primary care physician tomorrow. If you have any worsening or new symptoms, please return to the emergency room or call 911 Prescriptions: New levofloxacin 500 mg tablet 500 mg PO DAILY Qty: 9 0RF metronidazole 500 mg tablet 500 mg PO BID Qty: 19 0RF Print Language: Australian
[2023-09-15 13:43] LABS: MANUAL DIFF FLAG NO
[2023-09-15 13:46] LABS: Basophils Absolute Auto 0.1 X10*3/uL (0.0-0.2); Basophils Percent Auto 0.5 % (0-2); Eosinophils Absolute Auto 0.3 X10*3/uL (0.0-0.4); Eosinophils Percent Auto 3.1 % (0-4); Hematocrit 47.4 % (42.0-52.0); Hemoglobin 15.9 g/dl (14.0-18.0); Imm Gran Abs Auto 0.04 X10*3/uL (0.00-0.03); Imm Gran Pct Auto 0.4 % (0.0-0.4); Lymphocytes Absolute Auto 1.9 X10*3/uL (1.2-4.9); Lymphocytes Percent Auto 16.9 % (20-40); Mean Corpuscular HGB Conc 33.5 g/dl (31.0-36.0); Mean Corpuscular Hemoglobin 27.9 pg (27.0-33.0); Mean Corpuscular Volume 83.3 fL (80.0-98.0); Mean Platelet Volume 12.3 fL (9.4-12.4); Monocytes Absolute Auto 0.8 X10*3/uL (0.1-1.2); Neutrophils Percent Auto 72.1 % (45-73); Platelet Count 206 X10*3/uL (160-400); Red Blood Count 5.69 X10*6/uL (4.60-5.80); Red Cell Distribution Width 12.6 % (11.0-16.0); White Blood Count 11.1 X10*3/uL (4.8-10.8)
[2023-09-15 14:22] LABS: Alanine Aminotransferase 12 U/L (0-40); Albumin Level 4.5 g/dL (3.5-5.0); Alkaline Phosphatase 93 U/L (39-117); Anion Gap 13 (12-20); Aspartate Amino Transferase 19 U/L (5-37); Bilirubin Total 0.3 mg/dL (0.0-1.0); Blood Urea Nitrogen 11 mg/dL (9-16); Calcium 9.9 mg/dL (8.4-10.2); Carbon Dioxide 29 mmol/L (22-29); Chloride 102 mmol/L (96-108); Creatinine Clr Calc Pharmacy 98.5; Estimated Glomerular Filt Rate > 60; Glucose Random 101 mg/dL (60-115); Lipase 14 U/L (8-78); Magnesium 1.9 mg/dL (1.6-2.6); Potassium 4.3 mmol/L (3.3-5.1); Sodium 140 mmol/L (135-145); Total Protein 7.7 g/dL (6.5-8.0)
[2023-09-15 14:23] LABS: Influenza A PCR NEGATIVE (Negative); Influenza B PCR NEGATIVE (Negative); Resp Syncy Virus RNA Qual PCR NEGATIVE (Negative); SARS COV2 PCR INHOUSE NEGATIVE (Negative)
[2023-09-15 18:29] VITALS: BP 129/74; PULSE 72; RESP 16; TEMP 36.9; O2SAT 98
[2023-09-15 19:05] LABS: OBS Int Ctl Valid YES; OBS1 POSITIVE (NEGATIVE)
[2023-09-15 19:18] VITALS: BP 117/75; PULSE 88; RESP 18; TEMP 37.1; O2SAT 99
--- NOTE | 2023-09-15 19:53 | PC.NURSE ---
Per Dr. Cole blood cultures not needed to be drawn at this time.
[2023-09-15] MEDS: levoFLOXacin 500 MG TABLET PO (20:01)
[2023-09-15] MEDS: metroNIDAZOLE 500 MG TABLET PO (20:01)
[2023-09-15 20:04] VITALS: BP 117/75; PULSE 88; RESP 18; TEMP 37.1; O2SAT 99
== END 2023-09-15 20:05 | disposition home or self-care (01) ==
PROVIDERS: Physician Assistant Medical; Emergency Provider Emergency Medicine; PCP Pediatrics
DX: K52.9 Noninfective gastroenteritis and colitis, unspecified (principal); R10.32 Left lower quadrant pain; R10.31 Right lower quadrant pain; Z03.818 Encounter for observation for suspected exposure to other biological agents ruled out
CPT/HCPCS: 0241U; 36415; 74176; 80053; 82272; 83690; 83735; 85025; 99284

== ENCOUNTER 2023-11-01 14:08 | Outpatient (AMB) | payer OTHER, SELFPAY ==
[2023-11-01 14:19] VITALS: BP 118/60; PULSE 76
--- NOTE | 2023-11-01 14:19 | A.OFFVIS_ITS ---
Vital Signs 11/01/23 14:19 Height 5 ft 7 in Weight 127 lb 13.89 oz BMI 20.0 BP 118/60 Blood Pressure Location Lt brachial Position Sitting Pulse 76 Pulse Source Monitor Intake Visit Reasons: pre op abdominal procedure Allergies Seasonal Allergies Allergy (Mild, Verified 09/15/23 13:23) Sneezing HPI Comments Details: 18-year-old male presents today for a pre-operative clearance appointment. Patient is undergoing a EGD, Colonoscopy, and Biopsy with Dr. Funmilayo Padilla from [facility] but it has not been scheduled yet ( Fax ). Patient reports he has his repeat echocardiogram coming up on 12/08. He reports he still has intermittent chest pains triggered by mostly coughing/sneezing. Denies shortness of breath or palpitations. He has played some basketball with little difficulty. [facility] Medical History (Updated 11/01/23 @ 15:20 by Angelica Rodriguez NP) Pre-operative cardiovascular examination IBS (irritable bowel syndrome) Family History Father Heart problem Social History Patient Tobacco Use Status: Never used Tobacco Review of Systems Const Denies weakness ENT Denies dizziness Card Reports chest pain, Reports chest pain with activity, Denies syncope, Denies rapid heart rate, Denies pedal edema, Denies edema, Denies leg edema, Denies lightheadedness, Denies palpitations, Denies dyspnea, Denies dyspnea on exertion and Denies orthopnea Resp Denies cough, Denies dyspnea and Denies dyspnea on exertion GI Denies hematochezia and Denies change in stool character Musc Denies abnormal gait, Denies muscle cramps, Denies muscle weakness, Denies numbness, Denies radiating pain into limb and Denies tingling Neuro Denies abnormal gait, Denies dizziness, Denies syncope, Denies numbness, Denies tingling and Denies weakness Endo Denies palpitations Physical Exam Vital Signs: Last Vital Signs Pulse 76 11/01/23 14:19 BP 118/60 11/01/23 14:19 BMI result Body Mass Index 20.0 Const General: healthy appearing and no acute distress Orientation/consciousness: patient oriented x3 HEENT Head: Yes normal to inspection Eyes General: appearance normal, both eyes and all related structures Neck Neck: Yes normal visual inspection Chest Chest palpation & inspection: normal inspection of the chest Resp Effort & Inspection: normal respiratory effort Auscultation: clear to auscultation bilaterally Cardio Jugular venous distension: no JVD Palpation: normal PMI Rate: regular rate Rhythm: regular rhythm Heart sounds: S1 normal heart sound present, S2 normal heart sound present, no click, no gallops, no murmurs and no rubs GI Inspection: Yes normal to inspection Palpation (GI): Soft to palpation Skin General skin exam: no rashes or lesions noted Neuro General: patient oriented x3 Extrem General: Yes normal to inspection Psych Appearance: grossly normal Office Procedures EKG Details: EKG today. Normal sinus rhythm with sinus arhythmia. Rightward axis. Minimal Voltage criteria for LVH, may be normal variant. Rate 75bpm. QRS 90ms. QTc 390 ms. RI 126 ms. [id number], Complete Assessment & Plan Assessment & Plan (1) Pericarditis: Code(s): I31.9 - Disease of pericardium, unspecified Category: Medical Qualifiers: Chronicity: acute Pericarditis type: unspecified type Qualified Code(s): I30.9 - Acute pericarditis, unspecified (2) Pre-operative cardiovascular examination: Code(s): Z01.810 - Encounter for preprocedural cardiovascular examination Category: Medical Plan Repeat echocardiogram will try to move up sooner. Will also obtain heart MRI. NSAIDs as needed for discomfort. Will clear once testing is obtained. Orders: Orders MR cardiac morph fnct w con 11/01/23 I30.9 - Acute pericarditis, unspecified Medications: Discontinued levofloxacin Discontinued Reason: Patient no longer taking 500 mg PO DAILY 9 tabs 0RF metronidazole Discontinued Reason: Patient no longer taking 500 mg PO BID 19 tabs 0RF Coding Level of Care Code Est Pt Level 3 (85002) Diagnoses Pericarditis I30.9 Chronicity: acute Pericarditis type: unspecified type Pre-operative cardiovascular examination Z01.810 CPT Codes EKG - CPT: 87591-[id number], Complete ([id number])
== END 2023-11-01 15:03 | disposition home or self-care (01) ==
PROVIDERS: PCP Pediatrics; Visit Provider Nurse Practitioner
DX: I30.9 Acute pericarditis, unspecified (principal); Z01.810 Encounter for preprocedural cardiovascular examination
CPT/HCPCS: 93010; 99213

== ENCOUNTER → 2023-11-01 14:08 | Outpatient (BNVA) | payer OTHER, SELFPAY | PROVIDERS: PCP Pediatrics; Visit Provider Nurse Practitioner | DX: Z01.810 Encounter for preprocedural cardiovascular examination (principal); I30.9 Acute pericarditis, unspecified | CPT/HCPCS: 93005; 99212 ==

== ENCOUNTER → 2023-11-10 15:00 | Outpatient (REF) | payer OTHER, SELFPAY ==
--- NOTE | 2023-11-10 15:03 | CA_ITS ---
Transthoracic Echocardiogram Patient (Last, First, Middle): Nohemi Campbell A Gender: Male Date of : 2005 Age: 18 Procedure Date: 11/10/2023 Procedure Type: Transthoracic Echocardiogram Location: OP Height: 170.18 cm Weight: 54.43 kg BSA: 1.63 m2 Heart Rate: bpm BP: 116 / 78 mmHg Travel Writer: TO Referring MD: Angelica Rodriguez POLYSOMNOGRAPH TECH Manager Ui: Tim Yañez MD Symptoms: I30.9 - Acute pericarditis, unspecified Study Quality: Good ECG Rhythm: Sinus bradycardia Conclusions: - 1. Normal LV ejection fraction 55-60% with normal diastolic function 2. Normal cardiac valvular Dopplers 3. Normal RV systolic pressure 4. No gross pericardial effusion Findings Left Ventricle Normal left ventricular size, thickness, and systolic function. The visually estimated ejection fraction is between 55-60%. Diastolic function is normal for age. Right Ventricle Normal right ventricular cavity size and systolic function. Atria Both atria are normal in size. There is no evidence of interatrial shunt. Aortic Valve Normal aortic valve structure and function. There is no aortic valve stenosis. There is no aortic valve regurgitation. Mitral Valve Normal mitral valve structure and function. There is trace mitral valve regurgitation. There is no mitral valve stenosis. Pulmonic Valve The pulmonic valve is likely normal. There is trace pulmonic valve regurgitation. Tricuspid Valve Normal tricuspid valve structure. There is trace tricuspid valve regurgitation. The right ventricular systolic pressure is normal. The right ventricular systolic pressure is 12 mmHg. Normal right atrial pressure. There is no evidence of pulmonary hypertension. Great Vessels All visible segments of the aorta are normal in size. The pulmonary artery was not well visualized. Venous The inferior vena cava is normal in size and collapses greater than 50% with inspiration. Pericardium/Pleural There is no evidence of pericardial effusion. Measurements 2D Linear Measurements IVSd: 0.86 0.6-0.9/0.6-1.0 cm LVIDd: 4.78 3.9-5.3/4.2-5.9 cm LVIDd Index: 2.93 2.4-3.2/2.2-3.1 cm/m2 LVIDs: 3.38 2.0-3.6 cm LVPWd: 0.80 0.7-1.1 cm LA Diam: 3.20 2.7-3.8/3.0-4.0 cm LAIDs Index: 1.96 1.5-2.3 cm/m2 LV Mass: 163.54 67-162/88-224 g LV Mass Index: 100.33 43-95/49-115 g/m2 LVOT Diam: 2.30 3.0+(-)1.3 cm 2D Systolic Function EF 4C: 57.10 >55% EF 2C: 56.00 >55% EF BiP: 56.80 >55% Mitral Valve MV Pk E: 0.63 MV PK A: 0.20 MV Decel Time: 275.00 E/A: 3.10 E'Lateral: 20.30 E'Medial: 12.20 E/E' Med: 5.10 E/E' Lat: 3.10 PHT: 80.00 MVA PHT: 2.75 Decel Rains: 2.28 Aortic Valve AoV Pk Arsen: 1.07 AoV Mn Arsen: 0.71 AoV VTI: 0.22 AoV Pk Grad: 5.00 Aov Mn Grad: 2.00 CHERYL Cont.VTI: 3.26 LVOT LVOT Pk Arsen: 0.82 LVOT Mn Arsen: 0.55 LVOT VTI: 0.17 LVOT Pk Grad: 3.00 LVOT Mn Grad: 1.00 LVOT Diam: 2.30 LVOT Area: 4.15 Diastolic Function MV Pk E: 0.63 MV Pk A: 0.20 E/A: 3.10 E'Medial: 12.20 E/E' Med: 5.10 E' Laterial: 20.30 E/E' Lat: 3.10 Right Ventricle TAPSE (mm): 18.70 TVS' Arsen: 12.00 Tricuspid Valve TR Pk Arsen: 1.48 TR Pk Grad: 9.00 RA Press: 3.00 RVSP: 12.00 Great Vessels Aorta Sinus of Valsalva: 2.86 2.0-3.5 cm Ao Asc: 2.40 2.1-3.4 cm Updated in Other Vendor System with Status of Final Tim Yañez MD electronically signed on 11/11/2023 2:41:33 PM with status of Final
== END ==
LOC: HO.CARD 15:00
PROVIDERS: PCP Pediatrics; Visit Provider Nurse Practitioner
DX: I30.9 Acute pericarditis, unspecified (principal)
CPT/HCPCS: 93306

== ENCOUNTER → 2023-11-10 15:03 | Outpatient (BNV) | payer OTHER, SELFPAY | PROVIDERS: PCP Pediatrics; Visit Provider Internal Medicine Cardiovascular Disease | DX: I30.9 Acute pericarditis, unspecified (principal) | CPT/HCPCS: 93306 ==

== ENCOUNTER 2024-01-26 15:53 | Outpatient (REF) | payer OTHER, SELFPAY ==
[2024-01-26 16:49] LABS: Anion Gap 11 (12-20); Blood Urea Nitrogen 12 mg/dL (9-16); Calcium 9.5 mg/dL (8.4-10.2); Carbon Dioxide 30 mmol/L (22-29); Chloride 106 mmol/L (96-108); Estimated Glomerular Filt Rate > 60; Glucose Random 106 mg/dL (60-115); Potassium 4.1 mmol/L (3.3-5.1); Sodium 143 mmol/L (135-145)
== END 2024-01-26 15:54 | disposition home or self-care (01) ==
LOC: HO.LAB 15:53
PROVIDERS: PCP Pediatrics Adolescent Medicine; Visit Provider Nurse Practitioner Family
DX: Z01.812 Encounter for preprocedural laboratory examination (principal); R07.2 Precordial pain
CPT/HCPCS: 36415; 80048

== ENCOUNTER 2024-03-06 14:57 | Outpatient (REF) | payer OTHER, SELFPAY ==
--- NOTE | ~2024-03-06 | XR_ITS ---
EXAMINATION: XR CHEST CLINICAL INFORMATION: Dyspnea COMPARISON: 08/25/2023 TECHNIQUE: Frontal view of the chest was obtained. FINDINGS: Lungs clear. Heart and pulmonary vessels normal. XR/XR chest 1V IMPRESSION: No active disease. Electronically signed by: Marck Brown MD 03/06/2024 05:54 PM [facility] [place]
[2024-03-06 15:55] LABS: MANUAL DIFF FLAG NO
[2024-03-06 17:07] LABS: Basophils Absolute Auto 0.1 X10*3/uL (0.0-0.2); Basophils Percent Auto 1.3 % (0-2); Eosinophils Absolute Auto 0.4 X10*3/uL (0.0-0.4); Hematocrit 42.5 % (42.0-52.0); Hemoglobin 13.8 g/dl (14.0-18.0); Imm Gran Abs Auto 0.02 X10*3/uL (0.00-0.03); Imm Gran Pct Auto 0.3 % (0.0-0.4); Lymphocytes Absolute Auto 2.5 X10*3/uL (1.2-4.9); Lymphocytes Percent Auto 39.8 % (20-40); Mean Corpuscular HGB Conc 32.5 g/dl (31.0-36.0); Mean Corpuscular Hemoglobin 27.1 pg (27.0-33.0); Mean Corpuscular Volume 83.5 fL (80.0-98.0); Monocytes Absolute Auto 0.4 X10*3/uL (0.1-1.2); Monocytes Percent Auto 6.9 % (2-11); Neutrophils Absolute Auto 2.8 x10*3/uL (2.0-8.3); Neutrophils Percent Auto 45.7 % (45-73); Platelet Count 175 X10*3/uL (160-400); Red Blood Count 5.09 X10*6/uL (4.60-5.80); Red Cell Distribution Width 14.4 % (11.0-16.0); White Blood Count 6.2 X10*3/uL (4.8-10.8)
[2024-03-06 17:43] LABS: Alanine Aminotransferase 26 U/L (0-40); Albumin Level 4.2 g/dL (3.5-5.0); Alkaline Phosphatase 87 U/L (39-117); Anion Gap 9 (12-20); Aspartate Amino Transferase 24 U/L (5-37); Bilirubin Total 0.4 mg/dL (0.0-1.0); Blood Urea Nitrogen 13 mg/dL (9-16); C Reactive Protein 0.16 mg/dL (< or = 0.50); Calcium 8.8 mg/dL (8.4-10.2); Carbon Dioxide 29 mmol/L (22-29); Chloride 105 mmol/L (96-108); Estimated Glomerular Filt Rate > 60; Glucose Random 85 mg/dL (60-115); Potassium 3.8 mmol/L (3.3-5.1); Sodium 139 mmol/L (135-145); Total Protein 7.1 g/dL (6.5-8.0)
[2024-03-06 17:44] LABS: Erythrocyte Sedimentation Rate 5 MM/HR (0-15)
[2024-03-06 18:01] LABS: Vitamin D 25-OH Total 21.7 ng/mL (>30)
[2024-03-07 08:22] LABS: HBsAGNum1 0.36 S/CO (0.00-0.99); Hepatitis B Surface Antigen Negative (Negative); ~Hepatitis B Surface Antibody NONREACTIVE (Nonreactive)
[2024-03-08 06:29] LABS: EBV-VCA IgM Ab <36.00 U/mL
[2024-03-08 06:44] LABS: Varicella IgG Antibody <1.00 S/CO
[2024-03-09 18:37] LABS: TS Negative Control Passed; TS Panel A 0; TS Panel B 0; TS Positive Control Passed; TSpotTB Negative (Negative)
== END 2024-03-06 14:58 | disposition home or self-care (01) ==
LOC: HO.XRAY 14:57
PROVIDERS: Visit Provider Pediatrics Pediatric Gastroenterology
DX: K51.00 Ulcerative (chronic) pancolitis without complications (principal)
CPT/HCPCS: 36415; 71045; 80053; 82306; 85025; 85652; 86140; 86481; 86664; 86665; 86706; 86787; 87340

== ENCOUNTER 2024-10-22 13:45 | Outpatient (REF) | payer SELFPAY ==
--- OUTSIDE RECORDS SUMMARY | 2024-10-22 14:15 | XMS_ITS | Encounter Summary ---
Author Organization [facility] Address [address] [place] [address] Phone Care Team Providers Care Marine Cargo Surveyor Name Role Phone Ramone Rodas MD Primary Care Provider Encounter Details Date Type Department Care Team (Late st Contact Info) Description 04/12/2012 Documentation [facility] [place] [facility] [address] [place] [address] Family Medicine, Physician [address] [place], [place] [id number] Social History Tobacco Use Types Packs/Day Years Used Date Smoking Tobacco: Never Assessed Sex and Gender Information Value Date Recorded Sex Assigned at Male 11/02/2019 4:09 PM EDT Legal Sex Male 5:21 PM EDT Gender Identity Male 11/02/2019 4:09 PM EDT Sexual Orientation Straight 11/02/2019 4: 09 PM EDT documented as of this encounter Plan of Treatment Not on file documented as of this encounter Visit Diagnoses Not on filedocumented in this encounter Care Teams Marine Cargo Surveyor Relationship Specialty Start Date End Date Ramone Rodas MD [address] [place] [address] PCP - General Pediatrics 01/20/24 07/24/24 documented as of this encounter
--- OUTSIDE RECORDS SUMMARY | 2024-10-22 14:16 | XMS_ITS | Clinical Summary ---
Author Organization [facility] Address [address] [place] [address] Care Team Providers Care Rental Car Deliverer Name Role Phone Unavailable Primary Care Provider Unavailabl e Source Comments PLEASE NOTE, if this patient is a minor, it may be UNLAWFUL to discuss sensitive information that is contained in these records (such as FAMILY PLANNING, MENTAL HEALTH or SUBSTANCE ABUSE) with the minor patient's parent or other person without the patient's specific authorization.[facility] Medications ibuprofen 600 mg tablet Take 1 Tablet by mouth 4 (four) times daily as needed for pain 20 Tablet 07/31/2021 Active Social History Tobacco Use Types Packs/Day Years Used Date Smoking Tobacco: Never Assessed Social Connections Answer Date Recorded Connectedness 0 01/04/2024 Financial Resource Strain Answer Date R ecorded Financial Resource Strain 0 2021 Stress Answer Date Recorded Stress 0 04/23/2022 Physical Activity Answer Date Recorded Physical Activity 0 04/23/2022 Food Insecurity Answer Date Recorded Food 0 01/19/2024 Transportation Needs Answer Date Record ed Transportation 0 04/23/2022 Housing Stability Answer Date Recorded Housing 0 04/23/2022 Safety and Environment Answer Date Luther rded Safety 0 04/23/2022 Utilities Answer Date Recorded Utilities 0 04/23/2022 Employment Answer Date Recorded Stress 0 01/04/2024 Sex and Gender Information Value Date Recorded Sex Assigned at Not on file Legal Sex Male 8:52 AM PST Gender Identity Not on file Sexual Orientation Not on file Plan of Treatment Health Maintenance Due Date Last Done Comments Anxiety Screening 2005 Hepatitis C Screening 2005 Tobacco Screening 2005 Imm-Varicella (1 of 2 - 13+ 2-dose series) 06/28/2016 HIV Screening 06/28/2018 Imm-HPV (1 - Male 3-dose series) 06/28/2018 Hypertension Screening (#1) 06/28/2021 Imm-DTaP/Tdap/Td (1 - Tdap) 06/28/2022 Imm-Hepatitis B (1 of 3 - 19 + 3-dose series) 06/28/2022 [id number] (1 - 2023- season) 2023 Alcohol and Drug Screen 04/25/2024 Depression Annual Screen 04/25/2024 Imm-Influenza (Season Ended) 2024 Imm-Hepatitis A Aged Out No longer el igible based on patient's age to complete this topic Insurance [place]
[2024-10-22 14:28] LABS: Basophils Absolute Auto 0.1 X10*3/uL (0.0-0.2); Eosinophils Absolute Auto 0.3 X10*3/uL (0.0-0.4); Eosinophils Percent Auto 5.6 % (0-4); Hematocrit 46.6 % (42.0-52.0); Hemoglobin 15.4 g/dl (14.0-18.0); Imm Gran Abs Auto 0.02 X10*3/uL (0.00-0.03); Imm Gran Pct Auto 0.3 % (0.0-0.4); Lymphocytes Absolute Auto 2.5 X10*3/uL (1.2-4.9); Lymphocytes Percent Auto 43.1 % (20-40); MANUAL DIFF FLAG SCAN; Mean Corpuscular Hemoglobin 27.7 pg (27.0-33.0); Monocytes Absolute Auto 0.4 X10*3/uL (0.1-1.2); Monocytes Percent Auto 7.2 % (2-11); Neutrophils Absolute Auto 2.5 x10*3/uL (2.0-8.3); Neutrophils Percent Auto 42.8 % (45-73); PLT CLUMP 1; Red Blood Count 5.55 X10*6/uL (4.60-5.80); Red Cell Distribution Width 12.9 % (11.0-16.0); SCAN SMEAR FLAG 1
[2024-10-22 14:46] LABS: Platelet Count 156 X10*3/uL (160-400); SLIDE REVIEW VERIFIED; White Blood Count 5.7 X10*3/uL (4.8-10.8)
[2024-10-22 15:07] LABS: Erythrocyte Sedimentation Rate 2 MM/HR (0-15)
[2024-10-22 15:23] LABS: Alanine Aminotransferase 23 U/L (0-40); Albumin Level 4.7 g/dL (3.5-5.0); Alkaline Phosphatase 85 U/L (39-117); Anion Gap 10 (12-20); Aspartate Amino Transferase 26 U/L (5-37); Bilirubin Total 0.7 mg/dL (0.0-1.0); Blood Urea Nitrogen 13 mg/dL (9-16); C Reactive Protein < 0.10 mg/dL (< or = 0.50); Calcium 9.3 mg/dL (8.4-10.2); Carbon Dioxide 28 mmol/L (22-29); Chloride 107 mmol/L (96-108); Estimated Glomerular Filt Rate > 60; Glucose Random 69 mg/dL (60-115); Potassium 4.2 mmol/L (3.3-5.1); Sodium 141 mmol/L (135-145); Total Protein 7.3 g/dL (6.5-8.0)
[2024-10-22 15:42] LABS: Vitamin D 25-OH Total 32.3 ng/mL (>30)
== END 2024-10-22 13:46 | disposition home or self-care (01) ==
LOC: HO.LAB 13:45
PROVIDERS: Visit Provider Pediatrics Pediatric Gastroenterology
DX: K51.00 Ulcerative (chronic) pancolitis without complications (principal); E55.9 Vitamin D deficiency, unspecified
CPT/HCPCS: 36415; 80053; 82306; 85025; 85652; 86140